=== PATIENT | male | born 1955 | race Caucasian/White ===

== ENCOUNTER 2018-04-13 16:34 | Emergency (ER) | payer BC ==
[2018-04-13] MEDS ORDERED: methylPREDNISolone Sod Succ/PF 125 MG/2 ML VIAL ONE (16:46)
[2018-04-13] MEDS ORDERED: Albuterol Sulfate 1.25 MG/3 ML NEB ONE (16:47)
[2018-04-13] MEDS ORDERED: diphenhydrAMINE 50 MG/ML VIAL ONE (16:47)
[2018-04-13] MEDS ORDERED: Famotidine In NaCl 20 mg/50 ml Premix Bag ONE (17:42)
== END 2018-04-13 18:18 | disposition home or self-care (01) ==
LOC: BURERS 16:34
DX: L50.0 Allergic urticaria (principal); E78.5 Hyperlipidemia, unspecified; I10 Essential (primary) hypertension; Z79.82 Long term (current) use of aspirin; Z79.899 Other long term (current) drug therapy
CPT/HCPCS: 94640; 96365; 96367; 96368; J1200; J2930

== ENCOUNTER 2020-08-13 14:51 | Outpatient (CLI) | payer MEDICARE | END 2020-08-13 14:52 | disposition home or self-care (01) | LOC: BURRAD 14:51 | PROVIDERS: ATTEND Family Medicine | DX: Z77.090 Contact with and (suspected) exposure to asbestos (principal) | CPT/HCPCS: 71046 ==